=== PATIENT | male | born 1995 | race Caucasian/White ===

== ENCOUNTER 2017-12-27 08:49 | Emergency (ER) | payer BC ==
[2017-12-27] MEDS: ONDANSETRON (ODT) 4 MG TAB ODT (09:49)
== END 2017-12-27 11:00 | disposition home or self-care (01) ==
LOC: FTE 11:00
DX: R11.10 Vomiting, unspecified (principal); R19.7 Diarrhea, unspecified
CPT/HCPCS: 99283